=== PATIENT | female | born 1960 | race Caucasian/White ===

== ENCOUNTER 2016-12-14 17:07 | Emergency (ER) | payer MEDICAID ==
[~2016-12-14] VITALS: Ht 154.9 cm; Wt 84.4 kg
[~2016-12-14 17:07] MED LIST: ASPIRIN 81MG TA81 MG PO; CIPROFLOXACIN500 MG PO; DICLOFENAC SODI75 M3 PO; ENDOCET 325 MG-1 TAB PO; LOSARTAN POTASS1 TA1 PO; METRONIDAZOLE500 MG PO; NORCO 325 MG-51 TAB PO; POTASSIUM CHLO10 ME3 PO; PRAVACHOL40 MG PO; PREDNISONE 20MG20 MG PO; PREDNISONE20 MG PO; RANITIDINE300 MG PO
[2016-12-14] MEDS ORDERED: CIPROFLOXACIN500 M2 PO (17:28)
[2016-12-14] MEDS ORDERED: METRONIDAZOLE500 M2 PO (17:28)
--- NOTE | 2016-12-14 17:45 | Emergency Room Report ---
History of Present Illness Time Seen by [id number] Presenting Problem in Triage Pt arrived:Walked Presenting Problem:L SIDED ABDOMINAL AND BACK PAIN OFF AND ON FOR A WEEK. HX OF DIVERTICULITIS Onset of symptoms date/time:12/07/16 or onset unknown for: Treatment Prior to Arrival: [employer] Provided by: Sepsis Risk Assessment: Temp: 98.2 B/P: 148/83 MAP: 104 Pulse: 106 Resp: 20 Recent fever? N Clinical Suspician of Infection? N Mental Status: 1 - Regular (Normal Baseline) Sepsis Risk:Possible Sepsis Risk Have you (or family members/close friends) recently traveled outside the [place]? N If Yes, where/when: Have you had exposure to infectious disease within the past month? TB? Other? Specify: 56 years old white female with history of diverticulitis. She started experiencing LEFT flank pain and LEFT lower quadrant pain for one week. She is so Dr. Krishnamurthy yesterday was started on antibiotics and she is feeling worse. She has nausea but no vomiting or diarrhea. She is urinating f 4-5 times at night dark urine. She denies having fever or chills chest pain shortness of breath or palpitations. Source patient, RN notes reviewed, family Exam Limitations no limitations ALLERGIES Coded Allergies: No Known Allergies (10/17/15) Home Medications Reported Medications Pravastatin Sodium (Pravachol) 40 MG PO QHS ASPIRIN (Aspirin) 81 MG PO QHS #100 TABLET LOSARTAN/HYDROCHLOROTHIAZIDE (Losartan-Hctz 100-25 MG Tab) 1 TAB PO QHS CIPROFLOXACIN HCL (Ciprofloxacin HCl) 500 MG PO BID #20 Metronidazole 500 MG PO TID #30 Ranitidine Hydrochloride (Ranitidine) 300 MG PO QHS #30 History Medical History General CAD? No Angina: No SD: No Hypertension? Yes Hyperlipidemia? Yes CHF? No DVT? No PE? No COPD? No Asthma? No Anemia? No GERD? No Gastric ulcers? No GI Bleed? No Hernia? No Thyroid Problems? No Hypothyroidism? No CVA? No Seizures? No Diabetes? No Insulin Dependent: No Insulin Pump: No Home FSBS? No Renal Insuffiency? No End Stage Renal Disease? No UTI? Yes Stones? No BPH? No GB Disease: No Nephritic Syndrome? No Asplenia? No Hepatitis? No Sickle Cell Disease? No Arthritis? No Migraines? No Cataracts? No Glaucoma? No MRSA? No HIV? No TB? No Anxiety? No Depression? No Cancer? Yes Site: UTERINE More? No Immunization Hx DT/Tetanus 5-10 Years Ago Flu Refused Pneumonia Refuses Surgical Hx Previous Surgery?Y Appendectomy PARTIAL HYSTERECTOMY [employer] Hx LMP N/A Family History Family Hx Diabetes No CAD Yes Hypertension Yes Hyperlipidemia Yes Cancer Yes TB No Social History Smoking Hx Smoker: Never Smoker Tobacco: No Alcohol Alcohol: No Review of Systems All Other Systems Reviewed and Negative Constitutional no symptoms reported Eyes no symptoms reported ENT no symptoms reported. Respiratory no symptoms reported Cardiovascular no symptoms reported Gastrointestinal see HPI, abdominal pain, nausea Genitourinary no symptoms reported. Musculoskeletal no symptoms reported Skin no symptoms reported Psychiatric/Neurological no symptoms reported Physical Exam Vital Signs Vital Signs Date Time Temp Pulse Resp B/P Pulse O2 O2 Flow FiO2 Ox Delivery Rate 12/14 1755 99 20 140/66 97 12/14 1753 20 12/14 1721 98.2 106 20 148/83 95 - WBC >12,000 or <4,000 or 10% bands? 2 or more SIRS Criteria Met? B/P:148/83 MAP:104 Creatinine >2.0? UA output<0.5ml/kg/hr for 2 hrs? Platelet count >100,000? Lactate >2.0mmol/1? INR >1.2 or PTT > than 60 sec? Evidence of Organ Dysfunction? Provider documented clinical suspician of infection? N Sepsis Criteria Count: 2 Sepsis Risk: Possible Sepsis Risk General Appearance normal appearance, WD/WN Eye Exam - bilateral eye normal exam, bilateral eye PERRL, bilateral eye EOMI Ear, Nose, Throat hearing grossly normal, normal ENT inspection Neck normal inspection, non-tender, supple, full range of motion Respiratory Status Yes: trachea midline, chest symmetrical, non tender chest. No: respiratory distress. Lung Sounds bilateral: normal breath sounds, lungs clear. Cardiovascular normal exam, regular rate/rhythm, no peripheral edema, no gallop, no JVD, no murmur, no rub, normal peripheral pulses Peripheral Pulses Pulses normal Yes Gastrointestinal normal bowel sounds, soft, no guarding, no rebound, tenderness, obese soft abdomen , healed scars of previous surgeries. LEFT CVA tenderness with positive ballottement, LEFT lower quadrant tenderness. Without guarding no rigidity nor rebound across tenderness, positive bowel sounds. Extremities non-tender, normal range of motion, normal inspection Neurologic alert, hands hanger II-XII nml as tested, normal exam, oriented x 3 Reflexes Reflexes normal Yes Skin intact, normal color, warm/dry Medical Decision Making LABS/Meds/Orders Pt receiving controlled substance in ED? No Results/Orders Laboratory Tests 12/14/161920: Lactic Acid Pending 12/14/16 1725: Sodium 138, Potassium 3.1 L, Chloride 100, Carbon Dioxide 30, BUN 23 H, Creatinine 1.0, Estimated Creat Clear 85, Estimated GFR (MDRD) 58 L, Glucose 125 H, Calcium 8.9, Total Bilirubin 0.3, AST 15, ALT 24, Alkaline Phosphatase 104, Total Protein 8.3 H, Albumin 3.7, Globulin 4.6 H, Albumin/Globulin Ratio 0.8 L, Amylase 49, Lipase 141, WBC 12.1 H, RBC 4.90, Hgb 14.3, Hct 42.0, MCV 85.6, RDW 13.6, Plt Count 235, MPV 7.8, Gran % 69.5, Gran # 8.4 H, Lymphocytes % 21.2, Monocytes % 8.1, Eosinophils % 0.8, Basophils % 0.4, Lymphocytes # 2.6, Monocytes # 1.0, Eosinophils # 0.1, Basophils # 0.1, PUBS MCHC 34.0, MCH 29.2 Current Medication Orders Sig/Loretta Start time Last Medication Dose Route Stop Time Status Admin Sodium Chloride 50 ML .STK-MED ONE 12/14 1928 DC IV Ertapenem 0 .STK-MED ONE 12/14 1924 DC .ROUTE Sodium Chloride 50 ML .STK-MED ONE 12/14 1924 DC IV Ertapenem 0 .STK-MED ONE 12/14 1921 DC .ROUTE Potassium Chloride 0 .STK-MED ONE 12/14 1920 DC PO Ertapenem 1 GM ONCE ONE 12/14 191 AC 12/14 Sodium Chloride 50 ML IV 12/15 1943 193 Iopamidol 75 ML ONCE ONE 12/14 1844 UNV 12/14 IV 12/14 Potassium Chloride 40 MEQ ONCE ONE 12/14 1844 DC 12/14 PO 12/14 Sodium Chloride 10 ML ONCE ONE 12/14 1844 UNV 12/14 IV 12/14 Ketorolac 30 MG ONCE ONE 12/14 1800 DC 12/14 Tromethamine IV 12/14 1801 1753 Ketorolac 0 .STK-MED ONE 12/14 1751 DC Tromethamine .ROUTE Sodium Chloride 10 ML PRN PRN 12/14 1730 AC 12/14 IV 12/15 1728 1937 Orders Procedure Date/time Status DIET-NOTHING BY MOUTH 12/15 B Active CULTURE, BLOOD 12/14 1901 Active LACTIC ACID 12/[address] ABD & PELVIS W/ CONTRAST 12/[address] ABD/PELVIS REQ 12/14 172 Complete IV SALINE LOCK 12/14 172 Active LIPASE 12/14 172 Complete CBC WITH AUTO DIFF 12/14 172 Complete CHEM 12 PROFILE 12/14 172 Complete AMYLASE 12/14 172 Complete Departure Departure Time of Disposition 1934 Disposition Still a Patient Clinical Impression Primary Impression: Diverticulosis Secondary Impressions: Abdominal pain of unknown etiology Condition STABLE Referrals Raghu ARDON,Diego Resendiz (Family) Additional Instructions The ct scan with contrast was negative for diverticulitis and positive diverticulosis, there was no free air or acute pathology. HS was nedicated with toradol and invanz. I spoke with her pcp Dr. Krishnamurthy who advised to kellie rivas and anthony, she is see him for a recheck in Am.She was given acopy of her CT scan to take to Dr. Krishnamurthy. She was discharged in a stable condition. Dr. Nicholson Discharge Counseling Counseled pt/family regarding diagnosis, test results, medications/RX, home care, follow up needs Prescriptions Current Visit Scripts Dicyclomine Hcl (Bentyl 10MG) 10 MG PO Q8HP PRN abdominal cramps #15 CAP ED Critical Care Critical Care No If Critical Care minutes are documented, the time involved in the performance of seperately reportable procedures was not counted toward critical care time documented. I directly delivered medical care to this critically ill and/or injured patient. Timely evaluation and treatment was necessary to address the significant organ system(s) dysfunction present in this patient. at 1940
[2016-12-14 17:52] LABS: LYMPH # 2.6 K/mm3 (0.7-4.5); LYMPH % 21.2 % (10-50.0)
[2016-12-14 17:59] LABS: HEMOGLOBIN 14.3 g/dL (12.2-16.2)
[2016-12-14] MEDS ORDERED: BENTYL10 MG PO (19:38)
[2016-12-14 20:03] VITALS: BP 131/79
--- NOTE | 2016-12-15 14:48 | RADIOLOGY REPORT PS360 ---
CT ABD PELVIS W/ CONTRAST CLINICAL INDICATION: Left lower quadrant pain, history of diverticulitis LT LOWER QUAD PAIN ORDERING PHYSICIAN: Franco Nicholson MD PATIENT AGE: 56 years COMPARISON: 05/02/2013 TECHNIQUE: Axial images obtained with sagittal and coronal reformats. PROCEDURE: Oral Contrast: None IV Contrast: 75 mL's [id number]. FINDINGS: No acute finding the lower chest. The liver, gallbladder, spleen, adrenal glands, and pancreas have an unremarkable appearance. No renal calculi, renal mass, hydronephrosis, or ureteral calculus evident. Unremarkable appearing urinary bladder. No evidence of intestinal structure in or free air. Prior appendectomy. There is diverticulosis of the descending and sigmoid colon but no evidence of diverticulitis. There has been prior hysterectomy. There are multiple pelvic phleboliths. No acute bony anomalies. IMPRESSION: 1. No acute finding. 2. Diverticulosis. No evidence of diverticulitis.
== END 2016-12-14 20:04 | disposition still patient (30) ==
LOC: ER 17:07
PROVIDERS: Emergency Medicine
DX: K57.90 Diverticulosis of intestine, part unspecified, without perforation or abscess without bleeding (principal); I10 Essential (primary) hypertension; E78.5 Hyperlipidemia, unspecified; Z79.899 Other long term (current) drug therapy
CPT/HCPCS: J1335; Q9967